=== PATIENT | female | born 1980 | race Caucasian/White ===

== ENCOUNTER 2016-11-19 20:58 | Emergency (ER) | payer OTHER ==
[2016-11-19 21:04] VITALS: RESP 16; TEMP 97.7
[2016-11-19] MEDS ORDERED: PHENAZOPYRIDINE HCL 200 MG TAB ONE (21:32)
[2016-11-19] MEDS ORDERED: OXYCODONE/APAP 5/325 TAB ONE (21:32)
[2016-11-19 21:36] LABS: COLOR AMBER; LEUKOCYTE ESTERASE,URINE 2+ (NEGATIVE); NITRITE,URINE NEGATIVE (NEGATIVE)
[2016-11-19] MEDS ORDERED: OXYCODONE/APAP 5/325 TAB PO ONE (21:36)
[2016-11-19] MEDS ORDERED: PHENAZOPYRIDINE HCL 200 MG TAB PO ONE ×2 (21:36→22:05)
[2016-11-19 21:40] LABS: BACTERIA 1+ /hpf (NONE SEEN); MUCUS 4+ /lpf (NONE-1+); RBC,URINE 50-182 /hpf (0-3); WBC,URINE 50-182 /hpf (0-3); YEAST PRESENT /hpf (NONE SEEN)
[2016-11-19] MEDS ORDERED: CEPHALEXIN 500MG PREPACK#4 BTL TAKEHOME ONE (22:04)
--- NOTE | 2016-11-19 22:07 | EDPHY ---
H & P Smoking Status: Never smoked Time Seen by Provider: 11/19/16 21:14 HPI/ROS: CHIEF COMPLAINT: 36-year-old female presents to the emergency department lower abdominal pain and dysuria. Symptoms began 48 hours ago and she feels that they are getting much worse. She was traveling on a plane has not had the chance to come in for evaluation. She felt chilled and achy upon her return today and came to the emergency department for evaluation. She denies vomiting. Denies flank pain. Denies chest pain or difficulty breathing. Denies neck pain. Denies rash. She has never had a UTI before. Last menstrual period was 2 weeks ago and she denies . HISTORY OF PRESENT ILLNESS: must have 4 elements REVIEW OF SYSTEMS: Constitutional: No fever, no chills. Eyes: No double or blurry vision. ENT: No sore throat. Respiratory: No cough, no shortness of breath. Cardiac: No chest pain. Gastrointestinal: Abdominal pain. No vomiting or diarrhea Genitourinary: Dysuria. Musculoskeletal: No neck or back pain. Skin: No rashes. Neurological: No headache. (Niru Cochran) Past Medical/Surgical History: Negative (Niru Cochran M) Social History: and lives in [place] (Niru Cochran M) Physical Exam: General Appearance: Alert, no distress. Temperature 36.5, nontoxic-appearing. Eyes: Pupils equal and round. Extraocular motions are all intact. ENT: Mouth: Mucous membranes moist. Respiratory: No wheezing, rhonchi, or rales, lungs are clear to auscultation. Cardiovascular: Regular rate and rhythm. Gastrointestinal: Abdomen is soft. Suprapubic tenderness noted. No masses, rebound or guarding noted. No CVA tenderness bilaterally. Neurological: Alert and oriented x 3, cranial nerves II through XII grossly intact Skin: Warm and dry, no rashes. Musculoskeletal: Nontender to palpate along the cervical, thoracic or lumbar spine. Neck is supple. Extremities: Full range of motion and no peripheral edema. Psychiatric: Patient is oriented X 3, there is no agitation. (Niru Cochran M) Constitutional: Initial Vital Signs Temperature (C) 36.5 C 11/19/16 21:01 Heart Rate 77 11/19/16 21:01 Respiratory Rate 16 11/19/16 21:01 Blood Pressure 159/88 H 11/19/16 21:01 O2 Sat (%) 97 11/19/16 21:01 O2 Delivery Mode Room Air Allergies/Adverse Reactions: No Known Allergies Allergy (Unverified 11/19/16 21:03) Home Medications: Medication Instructions Recorded Cephalexin [Keflex] 500 mg PO QID #28 cap 11/19/16 Citalopram 11/19/16 Phenazopyridine HCl [Pyridium] 200 mg PO Q8PRN PRN #6 tab 11/19/16 Medical Decision Making ED Course/Re-evaluation: 36-year-old female presents to the emergency department with lower abdominal cramping and dysuria. Urinalysis reveals a large number of white blood cells and red blood cells. Urine culture is pending. She was given pyridium and was feeling much better. The patient will be treated with Keflex. Urine cultures pending. I do not think she needs IV antibiotics. She is not vomiting. I do not think this patient needs admission to the hospital. She will continue pyridium as needed. She was instructed to return to the emergency department if she developed vomiting, back pain, fever, or if she felt worse in any way. (Niru Cochran) Differential Diagnosis: Including but not limited to urinary tract infection, pyelonephritis, kidney stone, acute appendicitis (Niru Cochran) - Data Points Microbiology Results: MICROBIOLOGY 11/19/16 21:05 Urine,Clean Catch Urine Culture - Preliminary Gram Neg Rylan Lactose Clinical Informatics Physician Medications Given: Discontinued Medications Cephalexin (Keflex 500 Mg Prepack#4) 1 btl TAKEHOME EDNOW ONE PRN Reason: Protocol Stop: 11/19/16 22:05 Last Admin: 11/19/16 22:21 Dose: 1 btl Oxycodone/Acetaminophen (Percocet 5/325) 1 tab PO EDNOW ONE Stop: 11/19/16 21:37 Last Admin: 11/19/16 21:38 Dose: 1 tab Phenazopyridine HCl (Pyridium) 200 mg PO EDNOW ONE Stop: 11/19/16 21:37 Last Admin: 11/19/16 21:38 Dose: 200 mg Phenazopyridine HCl (Pyridium) 200 mg PO EDNOW ONE Stop: 11/19/16 22:06 Last Admin: 11/19/16 22:21 Dose: 200 mg Departure - Departure Disposition: Home, Routine, Self-Care Clinical Impression: Urinary tract infection Qualifiers: Urinary tract infection type: site unspecified Hematuria presence: without hematuria Qualified Code(s): N39.0 - Urinary tract infection, site not specified Condition: Good Instructions: Cephalexin (By mouth), Phenazopyridine (By mouth), Urinary Tract Infection in Women (ED) Additional Instructions: Keflex 500 mg 4 times daily for 1 week. Per radium as needed for burning with urination. Call [phone] for the results of your urine culture in 48 hours. Return to the emergency department if he develops fever, vomiting, back pain, or if you feel worse in any way. Referrals: Haleigh Salvador FNP [Primary Care Provider] - As per Instructions Prescriptions: Cephalexin [Keflex] 500 mg PO QID #28 cap Phenazopyridine HCl [Pyridium] 200 mg PO Q8PRN PRN #6 tab PRN Reason: P.r.n. dysuria
[2016-11-19 22:21] VITALS: BP 113/68; PULSE 67; O2SAT 93
== END 2016-11-19 22:19 | disposition home or self-care (01) ==
DX: N39.0 Urinary tract infection, site not specified (principal); B96.20 Unspecified Escherichia coli [E. coli] as the cause of diseases classified elsewhere

== ENCOUNTER 2018-03-20 19:19 | Emergency (ER) | payer OTHER ==
[2018-03-20] MEDS ORDERED: LORazepam 1 MG TAB PO ONE (19:29)
[2018-03-20] MEDS ORDERED: CEPHALEXIN 500 MG CAP PO ONE (19:32)
--- NOTE | 2018-03-20 19:33 | EDPHY ---
H & P Time Seen by Provider: 03/20/18 19:26 HPI/ROS: CHIEF COMPLAINT: Laceration right 5th toe HISTORY OF PRESENT ILLNESS: 38-year-old female was wearing sandals working on a bicycle when a fall off of the bike stand, the chain ring impacted the dorsal right 5th toe. She is complaining of pain, laceration, anxiety. Occurred shortly prior to arrival. Accidental. Tetanus is up-to-date. Full sensation distally. PHYSICAL EXAM (Prior to examination, patient consented to physical exam, hands were washed and my usual and customary physical exam procedures followed) 1) GENERAL: Well-developed, well-nourished, alert and oriented. Appears acutely anxious, hyperventilating, crying. 2) HEAD: Normocephalic 3) HEENT: sclera anicteric 4) LUNGS: Breathing comfortably. 5) SKIN: Laceration to the 5th toe 6) MUSCULOSKELETAL: Right foot: On the dorsal right 5th toe she has a vertically-oriented 2.5 cm laceration. Unwilling or unable to assess dorsiflexion function of the 5th toe 7) NEUROLOGIC: Decreased sensation distally Smoking Status: Never smoked Constitutional: Initial Vital Signs Temperature (C) 36.5 C 03/20/18 19:20 Heart Rate 100 03/20/18 19:20 Respiratory Rate 20 03/20/18 19:20 Blood Pressure 155/96 H 03/20/18 19:20 O2 Sat (%) 95 03/20/18 19:20 O2 Delivery Mode Room Air Allergies/Adverse Reactions: No Known Allergies Allergy (Verified 03/20/18 19:25) Home Medications: Medication Instructions Recorded Citalopram 11/19/16 Birthcontrol 03/20/18 Cephalexin [Keflex] 500 mg PO TID 7 Days cap 03/20/18 MDM/Departure - MDM Imaging Results: Imaging Impressions Foot X-Ray 03/20/18 19:31 Impression: 1. Avulsion fracture involving the distal phalanx of the right fifth toe. 2. Query changes associated with gouty arthropathy; clinical correlation recommended. Images reviewed myself Imaging: I viewed and interpreted images myself Procedures: Procedure: Laceration repair. I explained the indications, risks and benefits for both laceration repair and anesthetic administration. Verbal consent was obtained from the patient. The laceration on the right 5th toe was anesthetized using 0.5% bupivicaine without epinephrine digital nerve block. After anesthetic administered the patient was observed for a period of time and had no apparent adverse effects. The wound was cleaned, prepped, draped in normal sterile fashion and explored to its base. No foreign body seen, no foreign bodies palpated. There were no deep structures involved. There is a partial extensor tendon laceration. The wound was repaired with 10 simple interrupted 5 O Prolene suture. The wound repair was complex. The procedure was performed by myself. Patient has been informed that scarring will occur, although efforts have been made to minimize this. Procedure: Splint A karan tape and postop shoe splint was applied by ER emergency medical technician/driver. After application of the splint I returned and re-examined the patient. The splint was adequately immobilizing the joint and distal to the splint the patient's circulation and sensation were intact. Patient shows no signs of compartment syndrome. Was given orthopedic precautions. Medications Given: Discontinued Medications Cephalexin (Keflex 500 Mg Prepack#4) 1 btl TAKEHOME EDNOW ONE PRN Reason: Protocol Stop: 03/20/18 21:26 Last Admin: 03/20/18 21:41 Dose: 1 btl Cephalexin HCl (Keflex) 500 mg PO EDNOW ONE PRN Reason: Protocol Stop: 03/20/18 19:33 Last Admin: 03/20/18 20:21 Dose: 500 mg Lorazepam (Ativan) 1 mg PO EDNOW ONE Stop: 03/20/18 19:30 Last Admin: 03/20/18 19:32 Dose: 1 mg ED Course/Re-evaluation: 7:32 p.m. patient appears acutely anxious, have offered anxiolytic which she agrees to. Oral Ativan will be administered. She also agreed to digital nerve block which has been administered by myself see procedure note. Will obtain x- ray. Patient has been re-examined with serial exams. She was significantly more, after oral Ativan and I was able perform wound closure. She has been informed that she has an open fracture right 5th toe in the importance of follow-up has been stressed on numerous instances. She informs me that on Friday (today is Friday) she is leaving for [facility] see her parents both of whom are physicians. She will be there for some time. I have given her copies of her x- rays. I have given her name of a local orthopedic surgeon however if she prefers to follow up in [place] she may follow up with burner hand or orthopedic surgeon at that time. - Depart Disposition: Home, Routine, Self-Care Clinical Impression: Open toe fracture Qualifiers: Encounter type: initial encounter Toe: lesser toe Phalanx: proximal Fracture alignment: nondisplaced Laterality: right Qualified Code(s): S92.514B - Nondisplaced fracture of proximal phalanx of right lesser toe(s), initial encounter for open fracture Condition: Fair Instructions: Toe Fracture (ED) Additional Instructions: You have an open fracture of your right 5th toe. You also partial laceration of the extensor tendon. I recommend you follow up with a an orthopedic doctor or burner hand the next 2-3 days. Please take your x-rays and ER report with you. Take your antibiotics as directed. Return to the ER if you develop redness, swelling, discharge, warmth to the wound, red streaks going up your leg , or any other symptoms that concern you. Prescriptions: Cephalexin [Keflex] 500 mg PO TID 7 Days cap Referrals: Tiffanie Bliss MD [Medical Doctor] - As per Instructions
[2018-03-20] MEDS ORDERED: CEPHALEXIN 500MG PREPACK#4 BTL TAKEHOME ONE (21:25)
[2018-03-20 21:58] VITALS: BP 126/80
== END 2018-03-20 21:48 | disposition home or self-care (01) ==
PROC: 0HQMXZZ Repair Right Foot Skin, External Approach (ICD-10-PCS; principal; 2018-03-20)
DX: S92.514B Nondisplaced fracture of proximal phalanx of right lesser toe(s), initial encounter for open fracture (principal); W26.8XXA Contact with other sharp object(s), not elsewhere classified, initial encounter; Y99.0 Civilian activity done for income or pay; Y93.89 Activity, other specified
CPT/HCPCS: L4386

== ENCOUNTER → 2018-11-07 | Outpatient (CLI) | payer OTHER | LOC: FIMAGING 14:32 | PROVIDERS: ATTEND Family Medicine | DX: Z12.31 Encounter for screening mammogram for malignant neoplasm of breast (principal) ==